=== PATIENT | female | born 1990 | race Caucasian/White ===

== ENCOUNTER 2016-11-25 01:27 | Observation (INO) | payer OTHER ==
[2016-11-25 04:34] VITALS: BP 125/77; PULSE 82
[2016-11-25 05:06] LABS: BASOPHIL % 0.3 % (0.0-0.4); Eosinophil % 0.5 % (0.00-5.0); Granulocytes % 66.8 % (36.0-66.0); Lymphocytes % 26.4 % (24.0-44.0); Mean Cell Volume 85.7 fl (78-100); Mean Corpuscular Hemoglobin 27.7 pg (26-32); Mean Platelet Volume 10.8 fl (6-9.5); Platelet Count 410 K/mm3 (150-450); Red Blood Count 4.76 M/mm3 (4.1-5.4); Red Cell Distribution Width 12.8 % (11.5-14.0); White Blood Count 10.4 K/mm3 (4.0-10.5)
[2016-11-26 22:06] LABS: Hepatits B Sur Ag Screen Non Reactive (Non Reactive)
== END 2016-11-25 05:20 ==
LOC: OB 01:27 → EEVIPCON 01:27 → UNDOADMOB 01:27 → UNDODISOB 05:20
PROVIDERS: ADMIT Family Medicine; ATTEND Family Medicine
DX: Z34.83 Encounter for supervision of other normal pregnancy, third trimester (principal)
CPT/HCPCS: 36415; 80055; 80307; G0378

== ENCOUNTER 2016-11-26 21:31 | Observation (INO) | payer OTHER ==
[2016-11-27 00:50] VITALS: BP 138/89; PULSE 77
== END 2016-11-27 01:00 ==
LOC: OB 21:31
PROVIDERS: ADMIT Family Medicine; ATTEND Family Medicine
DX: Z34.83 Encounter for supervision of other normal pregnancy, third trimester (principal)
CPT/HCPCS: 80307; G0378

== ENCOUNTER 2016-12-01 01:54 | Observation (INO) | payer OTHER ==
[2016-12-01 02:12] VITALS: PULSE 75
[2016-12-01 05:37] VITALS: BP 120/75
== END 2016-12-01 05:35 ==
LOC: OB 01:54
PROVIDERS: ADMIT Family Medicine; ATTEND Family Medicine
DX: Z34.83 Encounter for supervision of other normal pregnancy, third trimester (principal)
CPT/HCPCS: 80307; G0378

== ENCOUNTER 2016-12-09 15:33 | Inpatient (IN) | payer OTHER ==
[2016-12-09] MEDS ORDERED: XYLOCAINE 1% HCL 20 ML MDV IJ PRN (16:00)
[2016-12-09] MEDS ORDERED: Ephedrine Sulfate 50 MG/ML IV PRN (16:00)
[2016-12-09] MEDS ORDERED: Lactated Ringers 1,000 ML IV ONE (16:00)
[2016-12-09] MEDS ORDERED: OB EPIDURAL NAROPIN/SUFENTANIL IN NACL EPIDURAL PRN (16:00)
[2016-12-09 16:20] LABS: BASOPHIL % 0.2 % (0.0-0.4); Eosinophil % 0.3 % (0.00-5.0); Granulocytes % 72.4 % (36.0-66.0); Lymphocytes % 20.6 % (24.0-44.0); Mean Cell Volume 84.7 fl (78-100); Mean Platelet Volume 10.7 fl (6-9.5); Monocytes % 6.5 % (0.0-12.0); Platelet Count 293 K/mm3 (150-450); Red Blood Count 4.25 M/mm3 (4.1-5.4); Red Cell Distribution Width 13.1 % (11.5-14.0); White Blood Count 9.4 K/mm3 (4.0-10.5)
[2016-12-09] MEDS: Lactated Ringers 1,000 ML IV SCH (16:31)
[2016-12-09] MEDS: PITOCIN 30 UNITS/ LR 500 ML 500 ML IV SCH (16:35)
[2016-12-09 17:09] VITALS: O2SAT 99
[2016-12-09] MEDS ORDERED: PITOCIN 30 UNITS/ LR 500 ML 30 UNITS/500 ML IV.SOLN. IV SCH (20:00)
[2016-12-09 22:31] LABS: CHLAMYDIA URINE NEGATIVE; GC URINE NEGATIVE
[2016-12-10] MEDS ORDERED: Dermoplast Spray TP PRN (00:50)
[2016-12-10] MEDS ORDERED: Tylenol #3 Tablet PO PRN (00:53)
[2016-12-10] MEDS ORDERED: TYLENOL EXTRA STRENGTH 500 MG PO PRN (00:53)
[2016-12-10] MEDS ORDERED: TUCKS TP PRN (00:53)
[2016-12-10 04:41] LABS: BASOPHIL % 0.1 % (0.0-0.4); Eosinophil % 0.1 % (0.00-5.0); Granulocytes % 86.7 % (36.0-66.0); Lymphocytes % 9.5 % (24.0-44.0); Mean Cell Volume 85.8 fl (78-100); Mean Corpuscular Hemoglobin 27.3 pg (26-32); Mean Platelet Volume 11.5 fl (6-9.5); Monocytes % 3.6 % (0.0-12.0); Platelet Count 284 K/mm3 (150-450); Red Blood Count 4.43 M/mm3 (4.1-5.4); White Blood Count 17.9 K/mm3 (4.0-10.5)
[2016-12-10] MEDS: MOTRIN 400 MG PO PRN ×3 (05:16→20:09)
[2016-12-10] MEDS ORDERED: M-M-R II Vaccine With Diluent SQ ONE (09:00)
[2016-12-10] MEDS: FERREX 150 PO SCH (10:28)
[2016-12-10] MEDS: Colace 100 MG PO SCH ×2 (10:28→21:31)
[2016-12-10] MEDS: Neurontin 100 MG PO SCH ×3 (10:30→21:31)
[2016-12-10] MEDS: Cymbalta 30 MG Capsule PO SCH (10:31)
[2016-12-10] MEDS ORDERED: Adacel Vial IM ONE (12:00)
[2016-12-10] MEDS: DESYREL 50 MG PO SCH (21:31)
[2016-12-11] MEDS: MOTRIN 400 MG PO PRN ×2 (02:37→10:23)
[2016-12-11] MEDS: FERREX 150 PO SCH (10:19)
[2016-12-11] MEDS: Colace 100 MG PO SCH ×2 (10:19→21:52)
[2016-12-11] MEDS: Neurontin 100 MG PO SCH ×3 (10:19→21:52)
[2016-12-11] MEDS: Cymbalta 30 MG Capsule PO SCH (10:19)
[2016-12-11] MEDS: Trandate 100 MG PO SCH (20:45)
[2016-12-11 21:01] LABS: BASOPHIL % 0.3 % (0.0-0.4); Eosinophil % 0.6 % (0.00-5.0); Granulocytes % 66.9 % (36.0-66.0); Lymphocytes % 26.1 % (24.0-44.0); Mean Cell Volume 85.8 fl (78-100); Mean Corpuscular Hemoglobin 27.1 pg (26-32); Mean Platelet Volume 10.7 fl (6-9.5); Monocytes % 6.1 % (0.0-12.0); Platelet Count 273 K/mm3 (150-450); Red Blood Count 4.51 M/mm3 (4.1-5.4); Red Cell Distribution Width 13.1 % (11.5-14.0); White Blood Count 9.7 K/mm3 (4.0-10.5)
[2016-12-11 21:25] LABS: ALBUMIN 2.8 g/dL (3.4-5.0); ALKALINE PHOSPHATASE 194 U/L (46-116); BILIRUBIN,TOTAL 0.2 mg/dL (0.2-1.0); BLOOD UREA NITROGEN 10 mg/dL (9-20); CHLORIDE 104 mEq/L (98-107); Carbon Dioxide 26.3 mEq/L (21-32); Glucose 85 MG/DL (70-110); Potassium 4.4 mEq/L (3.5-5.1); SGOT/AST 27 U/L (15-37); SGPT/ALT 16 U/L (12-78); SODIUM 139 mEq/L (136-145); Total Protein 7.3 gm/dL (6.4-8.2)
[2016-12-11] MEDS: DESYREL 50 MG PO SCH (23:30)
[2016-12-12] MEDS: Neurontin 100 MG PO SCH ×3 (10:36→22:04)
[2016-12-12] MEDS: FERREX 150 PO SCH (10:36)
[2016-12-12] MEDS: Trandate 100 MG PO SCH ×2 (10:36→22:04)
[2016-12-12] MEDS: Colace 100 MG PO SCH ×2 (10:36→22:04)
[2016-12-12] MEDS: Cymbalta 30 MG Capsule PO SCH (10:36)
[2016-12-12] MEDS: PITOCIN 30 UNITS/ LR 500 ML 500 ML IV SCH (15:49)
[2016-12-12] MEDS: Lactated Ringers 1,000 ML IV SCH ×2 (15:49→15:50)
[2016-12-12] MEDS: MOTRIN 400 MG PO PRN (19:22)
[2016-12-12] MEDS: DESYREL 50 MG PO SCH (23:10)
[2016-12-13] MEDS: Colace 100 MG PO SCH (09:22)
[2016-12-13] MEDS: Trandate 100 MG PO SCH (09:22)
[2016-12-13] MEDS: Cymbalta 30 MG Capsule PO SCH (09:22)
[2016-12-13] MEDS: Neurontin 100 MG PO SCH (09:22)
[2016-12-13] MEDS: FERREX 150 PO SCH (09:22)
--- NOTE | 2016-12-13 10:02 | PCM.DS ---
Discharge Summary Date of Admission: 12/09/16 15:33 Admitting Physician: ZEB DUDLEY Consults: Consults on Case 12/09/16 16:02 Notify Anesthesia Provider PRN Primary Care Provider: ZEB DUDLEY Allergies Allergies erythromycin base [Erythromycin Base] Allergy (Mild, Verified 08/02/16 16:28) Hives Sulfa (Sulfonamide Antibiotics) [Sulfa(Sulfonamide Antibiotics)] Allergy (Mild, Verified 08/02/16 16:28) blood count drops Hospital Summary - Hospital Course Hospital Course: Pt admitted in labor, term with scant care (pt admitted here from long-term). . She delivered vaginal, viable male. CPS is involved; they are taking custody of the baby. Yesterday pt started having elevated BP, > 170 systolic. She was started on po labetalol with good response (BP now 110s- 130s systolic). She will continue this at home and follow up with Dr. Dudley outpatient. After delivery she was not and wanted to continue the meds she had been on before her , specifically cymbalta 30mg po daily, neurontin 100mg po TID, and trazodone 150mg at hs. I started the trazodone at 50mg at hs and she will be sent home with rx for all three. - Vitals & Intake/Output Vital Signs: Vital Signs Temperature 98.3 F 12/12/16 19:53 Pulse Rate 64 12/13/16 06:11 Respiratory Rate 18 12/13/16 06:11 Blood Pressure 129/84 12/13/16 06:11 O2 Sat by Pulse Oximetry 99 12/09/16 17:30 Intake & Output: Intake & Output 12/10/16 12/11/16 12/12/16 12/13/16 11:59 11:59 11:59 11:59 Intake Total 400 1500 1250 1000 Output Total 501 Balance -101 1500 1250 1000 Weight 66.224 kg - Lab Result Diagrams: 12/11/16 20:56 12/11/16 20:56 Micro Results-Entire Visit: Microbiology 12/09/16 20:50 - Final Catherized NO GROWTH Discharge Exam General Appearance: no apparent distress Neurologic Exam: alert, oriented x 3, cooperative Skin Exam: normal color, warm, dry Respiratory Exam: normal breath sounds, No crackles/rales, No rhonchi, No wheezing Cardiovascular Exam: regular rate/rhythm, normal heart sounds, No murmur Gastrointestinal/Abdomen Exam: soft, normal bowel sounds, other (fundus firm under umbilicus), No tenderness Extremity Exam: No pedal edema, No swelling Back Exam: normal inspection Final Diagnosis/Problem List - Final Discharge Diagnosis/Problem (1) Vaginal delivery Current Visit: No Status: Acute Assessment & Plan: Doing great, home today (PPD#4). (2) Preeclampsia Current Visit: Yes Status: Acute Assessment & Plan: Started post . Her labs are normal. Home on labetalol 100 po BID and f/ u in 1 week. Return to ER for any severe headache, visual changes, or RUQ pain. (3) Polysubstance abuse Current Visit: No Status: Acute Assessment & Plan: She plans outpatient treatment at [facility]. For now baby is in custody of CPS. - Discharge Disposition: Home, Self-Care Condition: Stable Prescriptions: New Trazodone HCl 50 mg [Desyrel 50 mg] 50 mg PO QHS #30 tablet Duloxetine HCl 30 mg [Cymbalta 30 MG Capsule] 30 mg PO DAILY #30 cap Gabapentin [Neurontin] 100 mg PO TID #90 capsule Labetalol HCl [Trandate] 100 mg PO BID #60 tablet Continue No Home Meds 1 [facility] UD #0 each Additional Instructions: HAS APPT WITH KAYLIE AT [facility] December AT 0930 AM AND KAYLIE WILL GET HER SET UP WITH [facility] [place]. Follow up with: ZEB DUDLEY MD [Primary Care Provider] - 1 Week
[2016-12-13 12:39] VITALS: BP 135/82; PULSE 63
== END 2016-12-13 13:20 | disposition home or self-care (01) | DRG 774 ==
LOC: OBSVTOIN 15:33 → OB 15:33
PROVIDERS: ADMIT Family Medicine; ATTEND Family Medicine
PROC: 10E0XZZ Delivery of Products of Conception, External Approach (ICD-10-PCS; principal; 2016-12-09)
DX: O98.819 Other maternal infectious and parasitic diseases complicating pregnancy, unspecified trimester (principal); O14.95 Unspecified pre-eclampsia, complicating the puerperium; Z3A.39 39 weeks gestation of pregnancy; Z37.0 Single live birth; F19.10 Other psychoactive substance abuse, uncomplicated; F53 Mental and behavioral disorders associated with the puerperium, not elsewhere classified
CPT/HCPCS: 01967; 36415; 80053; 80307; 84550; 85025; 86850; 86900; 86901; 87086; 87491; 87591; 90471; 90472; 90707; 90715; 94799; G0378; J2590; J2795; A9270-GY

== ENCOUNTER 2018-04-13 02:18 | Emergency (ER) | payer OTHER ==
[2018-04-13 02:37] VITALS: BP 138/90; PULSE 98; O2SAT 100
--- NOTE | 2018-04-13 02:41 | ERPHSYRPT ---
- History of Present Illness Time Seen by Provider: 04/13/18 02:30 Source: patient, police Exam Limitations: intoxication Physician History: 28 y/o female brought in by police for medical clearance. As per police, patient has been drinking alcohol and they found amphetamine with a needle in her purse. Pt arrives intoxicated and she admits to drinking 1/5 of alcohol. Pt is denying any illicit drug use. Pt states that she takes gabapentin for seizure but she did run out of her meds. She states that she gets frequent seizures. Timing/Duration: today Associated Symptoms: denies symptoms Allergies/Adverse Reactions: erythromycin base [Erythromycin Base] Allergy (Mild, Verified 08/02/16 16:28) Hives Sulfa (Sulfonamide Antibiotics) [Sulfa(Sulfonamide Antibiotics)] Allergy (Mild, Verified 08/02/16 16:28) blood count drops Hx Tetanus, Diphtheria Vaccination/Date Given: No Hx Influenza Vaccination/Date Given: No Hx Pneumococcal Vaccination/Date Given: No - Review of Systems Constitutional: No Fever, No Chills Eyes: No Symptoms Ears, Nose, & Throat: No Symptoms Respiratory: No Cough, No Dyspnea Cardiac: No Chest Pain, No Edema, No Syncope Abdominal/Gastrointestinal: No Abdominal Pain, No Nausea, No Vomiting, No Diarrhea Genitourinary Symptoms: No Dysuria Musculoskeletal: No Back Pain, No Neck Pain Skin: No Rash Neurological: No Dizziness, No Focal Weakness, No Sensory Changes Psychological: Alcohol Abuse, Drug Abuse Endocrine: No Symptoms All Other Systems: Reviewed and Negative - Past Medical History Pertinent Past Medical History: Yes Neurological History: Epilepsy ENT History: No Pertinent History Cardiac History: No Pertinent History Respiratory History: No Pertinent History Endocrine Medical History: No Pertinent History Musculoskeletal History: No Pertinent History GI Medical History: No Pertinent History History: No Pertinent History Psycho-Social History: Depression Female Reproductive Disorders: Other Other Medical History: ITP. Hep C. cryo for abnormal cevical cells - Past Surgical History Past Surgical History: Yes Neuro Surgical History: No Pertinent History Cardiac: No Pertinent History Respiratory: No Pertinent History Gastrointestinal: No Pertinent History Genitourinary: No Pertinent History Musculoskeletal: No Pertinent History Female Surgical History: Other Other Surgical History: BLOOD TRANSFUSIONS X4--LAST ONE IN 2003 d/t ITP. D&C in 2010. 2 cervical procedures d/t abnormal pap. tosilectomy - Social History Smoking Status: Former smoker How long have you smoked: 15years Exposure to second hand smoke: Yes Drug Use: marijuana, other Patient Lives Alone: No (recent longterm) - Physical Exam General Appearance: alert, cachetic, other (intoxicated) Eye Exam: PERRL/EOMI, eyes nml inspection Ears, Nose, Throat Exam: normal ENT inspection, TMs normal, pharynx normal, moist mucous membranes Neck Exam: normal inspection, non-tender, supple, full range of motion Respiratory Exam: normal breath sounds, lungs clear, No respiratory distress Cardiovascular Exam: regular rate/rhythm, normal heart sounds, normal peripheral pulses Gastrointestinal/Abdomen Exam: soft, normal bowel sounds, No tenderness, No mass Back Exam: normal inspection, normal range of motion, No CVA tenderness, No vertebral tenderness Extremity Exam: normal inspection, normal range of motion, pelvis stable Neurologic Exam: alert, oriented x 3, cooperative, normal mood/affect, nml cerebellar function, nml station & gait, sensation nml, No motor deficits Skin Exam: normal color, warm, dry, No rash Lymphatic Exam: No adenopathy - Course Nursing assessment & vital signs reviewed: Yes - Progress Progress: unchanged Progress Note: 04/13/18 02:39 Pt has no complaints and the physical exam is unremarkable. The patient has been medically cleared for going to longterm. - Departure Time of Disposition: 02:39 Departure Disposition: Senior Care/Residential Clinical Impression: Polysubstance abuse, Alcohol abuse Condition: Fair Critical Care Time: No Referrals: ZEB DUDLEY MD [Primary Care Provider] - Instructions: Alcohol Abuse and Alcoholism (DC)
== END 2018-04-13 02:54 | disposition home or self-care (01) ==
LOC: ED 02:18
DX: F19.10 Other psychoactive substance abuse, uncomplicated (principal); F10.10 Alcohol abuse, uncomplicated
CPT/HCPCS: 99283